=== PATIENT | male | born 1975 | race African-American/Black ===

== ENCOUNTER 2024-09-26 19:31 | Inpatient (IN) | payer MEDICAID, SELFPAY ==
--- NOTE | 2024-09-26 19:36 | XR_ITS ---
Examination: Abdomen AP single view Technique: AP portable supine abdomen, single view Exam date and time: September 26, 2024 1950 hrs. Indications: Patient swallowed foreign bodies. Findings: 2 opaque foreign bodies resembling batteries project in the left upper abdomen No free air Impression: Positive for opaque foreign bodies
[2024-09-26 19:40] VITALS: BP 183/109; BP 203/139; PULSE 65; RESP 18; TEMP 36.8; O2SAT 99; BMI 35.2
--- NOTE | 2024-09-26 19:40 | EDNOTE_ITS ---
ED General RME/HPI General Chief complaint: General Adult/Misc Complain Stated complaint: INGESTION Time Seen by Provider: 09/26/24 19:36 Arrival date/time: 09/26/24 19:31 CC: Swallowed 2 AAA batteries HPI incident occurred between 1600 1700 this afternoon. Patient denies any physical pain at this time. States he wants to commit suicide. Patient has no specific complaints. States he is on Zyprexa and as needed ibuprofen Related Data Home Medications ?Medication ?Instructions ?Recorded ?Confirmed divalproex 500 mg tablet,delayed 500 mg PO BID 04/29/24 04/29/24 release (Depakote) olanzapine 10 mg tablet (Zyprexa) 10 mg PO QPM 04/29/24 04/29/24 Allergies Allergy/AdvReac Type Severity Reaction Status Date / Time chlorpromazine Allergy Hives Verified 04/27/24 21:20 [From Thorazine] codeine Allergy Hives Verified 04/27/24 21:20 lithium Allergy Hives Verified 04/27/24 21:20 Review of Systems Review of Systems Narrative Review of Systems: GEN: No fever, no chills, no weight loss EYES: No discharge, no visual changes, no pain HEENT: No ear pain, no congestion, no sore throat PULM: No shortness of breath, no cough, no congestion CV: No chest pain, no dyspnea on exertion, no palpitations GI: No nausea, no vomiting, no diarrhea, no pain, no constipation : No frequency, no urgency, no dysuria MUSC/SKEL: No joint pain, no back pain SKIN: No rash PSYCH: No hallucinations, no depression HEME/LYMPH: No easy bleeding or bruising tendencies NEURO: No weakness, no headache Past Medical History Past Medical History NEUROLOGIC: Negative Neurological Disorders, Cerebrovascular Accident, Transient Ischemic Attacks (TIA), Dementia, Alzheimer's Disease, Parkinson's Disease, Brain Tumor, Meningitis, Seizures, Epilepsy, Multiple Sclerosis, Cerebral Palsy, Amyotrophic Lateral Sclerosis (ALS/Miriam Gehrig's), Guillain-[place] Syndrome, Spina Bifida, Paralysis, Peripheral Neuropathy, Og's Palsy, Subdural Hematoma, Migraine, Head Trauma, Spinal Cord Injury or Traumatic Brain Injury CARDIAC: Negative Cardiac Disorders or Congestive Heart Failure RESPIRATORY: Negative Chronic Obstructive Pulmonary Disease (COPD), Asthma, Bronchitis, Emphysema, Pneumonia, Pulmonary Fibrosis, Cystic Fibrosis, Tuberculosis, Pulmonary Embolism, Pulmonary Edema or Sleep Apnea GASTROINTESTINAL: Negative Gastrointestinal Disorders, Hepatitis or Colorectal Cancer GENITOURINARY: Negative Genitourinary Disorders, Renal Disease, Kidney Stones, Polycystic Kidney Disease, Neurogenic Bladder, Inguinal Hernia, Dialysis or Prostate Cancer REPRODUCTIVE: Negative Breast Cancer, Fibroids or Testicular Cancer MUSCULOSKELETAL: Positive Musculoskeletal Disorders and Scoliosis; Negative Bone Cancer or Carpal Tunnel Syndrome ENT: Negative Cataracts or Head Trauma ENDOCRINE: Negative Endocrine Disorders, Diabetes Mellitus Type 1 or Diabetes Mellitus Type 2 HEMATOLOGIC: Negative Blood Disorders, Anemia, Leukemia, Hemophilia, Thalassemia, Sickle Cell Disease or Clotting Problems PSYCHO/SOCIAL: Positive Psychiatric Problems, Recreational Drug Use, Bipolar Disorder, Depression and Anxiety OTHER HISTORY: Positive Chicken Pox; Negative Hospitalization, Autoimmune Disease, Down Syndrome, Autism, Developmental Delay, Shingles, Falls, Blood Transfusions, Blood Transfusion Reaction, Anesthesia Reactions, Organ Transplant, Chemotherapy, Radiation Therapy, Hyperbaric Therapy, MRSA, VRSA, Vancomycin-Resistant Enterococci, Human Immunodeficiency Virus (HIV), Measles, Mumps, Rubella ([place] Measles), Pertussis, Clostridium Difficile, Cancer, Breast Cancer, Cervical Cancer, Colorectal Cancer, Lung Cancer, Ovarian Cancer, Prostate Cancer or Testicular Cancer Family History FAMILY HISTORY: Negative Family Cardiac Disorders, Family Cancer, Family Surgery or Family Anesthesia Reaction Surgical History SURGICAL: Negative Cardiac Surgery, Auto Implanted Cardiovert Defib, Carotid Endarterectomy, Endocrine Surgery, Thyroidectomy, Ear Surgery, Tympanostomy Tube, Eye Surgery, Nose Surgery, Oral Surgery, Tonsillectomy, Adenoidectomy, Cochlear Implant, Corneal Transplant, Throat Surgery, Abdominal Surgery, Tracheostomy, Gastric Bypass Surgery, Gastrostomy, Bowel Surgery, Nephrectomy, Transurethral Resection, Joint Replacement, Amputation, Open Reduction Internal Fixation, Arthroscopy, Neurologic Surgery, Brain Shunt, Mastectomy, Lumpectomy, Vasectomy or Organ Transplant Social History SMOKING STATUS: Never smoker ED Exam Narrative Physical exam: [General: Not in any acute distress Head normocephalic HEENT: Within acceptable limits Neck is supple nontender Chest equal chest rise nontender to palpation Respiratory: Clear to auscultation no wheezes crackles or rubs CV: Rate rhythm is regular no murmurs rubs or clicks Abdomen is soft nontender no masses positive bowel sounds all 4 quadrants Back: No CVA tenderness no spinous process tenderness from cervical spine thoracic and lumbar spine Skin: Intact no petechiae rash induration ulceration or crepitus Extremities: Moving all extremity against resistance cap refill less than 2 seconds neurosensory intact Neuro: Awake alert oriented x3 Glascow coma 15 no focal deficits] Course Course Course Narrative: Patient case discussed with poison control who states as it is not passed from the stomach in the past 3-1/2 hours there is concern, and the suggest consult to GI Dr. Manzanares was consulted regarding this patient's condition he wants the patient admitted, n.p.o., started IV fluids and he will monitor the patient for potential endoscopy tomorrow. Patient case discussed with the resident for Dr. Addison who agrees to accept the patient for admission. Quality Measures none Orders Category Date Time Status Saline [Insert IV] NOW Care 09/26/24 20:10 Active Consult to Gastroenterology Stat Cons 09/26/24 20:10 Ordered XR abdomen 1V Stat Exams 09/26/24 19:36 Taken CBC Stat Lab 09/26/24 20:11 Ordered CMP [Comprehensive Metabolic Panel] Stat Lab 09/26/24 20:11 Ordered PT [Prothrombin Time with INR] Stat Lab 09/26/24 20:11 Ordered PTT [Partial Thromboplastin Time] Stat Lab 09/26/24 20:11 Ordered Sodium Chloride 0.9% 1000 ml [Ns] 1,000 ml Med 09/26/24 20:10 Ordered IV 100 mls/hr cloNIDine HCL [Catapres] Med 09/26/24 19:51 Discontinued 0.3 mg PO X1 ONE Vital Signs Vital signs: Vital Signs Temperature 98.2 F 09/26/24 19:40 Pulse Rate 65 09/26/24 19:40 Respiratory Rate 18 09/26/24 19:40 Blood Pressure 183/109 H 09/26/24 19:40 Pulse Oximetry (%) 99 09/26/24 19:40 Oxygen Delivery Method Room Air 09/26/24 19:40 [facility] Patient data External records reviewed:: [facility] previous records Clinical information provided by:: patient and law enforcement Social determinants that could affect healthcare access:: none Patient has the following chronic illnesses:: Depression How is presenting disease/condition affected by chronic disease/condition?: uneffected by Evaluation data The following diagnostics were reviewed and interpreted by me:: lab results and radiology exam(s) Lab and/or radiology exams considered but not ordered:: Single view abdomen shows 2 batteries in the stomach. Interpretation Summary: Batteries in the stomach Medications Medications considered but not ordered:: None Medication administrations:: Medication Administration History Sodium Chloride (Ns) 1,000 mls @ 100 mls/hr IV .Q10H YOLANDA Stop: 10/26/24 20:09 Discontinued Medications Clonidine (Clonidine Hcl 0.1 Mg Tablet) 0.3 mg PO X1 ONE Stop: 09/26/24 19:52 Last Admin: 09/26/24 19:56 Dose: 0.3 mg Documented By: CHAN None Consultations Consultation(s) initiated? (list below): No Diagnosis Differential Diagnosis ED Complaint MDM: Foreign body in the stomach obstruction of esophagus obstruction of the int Most likely diagnosis given after review of the tests above:: Disposable batteries in the stomach Admission Indicated Admission indicated?: indicated Explain why admission is indicated or not indicated:: Quires further medical management Admission Request Was there a request for admission?: No Disposition Plan Disposition Plan: Admit Medical Decision Making Differential Diagnosis Differential Diagnosis: Foreign body in the stomach obstruction of esophagus obstruction of the int Discharge Plan Plan Patient Disposition: HOME (Self Care) Patient condition on transfer: Stable Prescriptions/Referrals Prescriptions/Med Rec: No Action olanzapine [Zyprexa] 10 mg Tablet 10 mg PO QPM divalproex [Depakote] 500 mg Tablet,Delayed Release (Dr/Ec) 500 mg PO BID Problem List Clinical Impression: Intentional ingestion of batteries Patient/Caregiver Discharge Instructions Print Language: Nigerien Stand Alone Forms: Beatriz Award Info., Patient Portal Info Letter PA/DMITRI Supervising Physician PA/FINISHING AREA SUPERVISOR Supervising Physician: Calixto Maldonado ENP
[2024-09-26 19:56] VITALS: BP 183/109; PULSE 65
[2024-09-26] MEDS: cloNIDine HCL 0.1 MG TABLET 0.3 MG PO (19:56)
[2024-09-26] MEDS: SODIUM CHLORIDE 0.9% 1000 ML 1,000 ML 100 ML IV (20:40)
--- NOTE | 2024-09-26 20:44 | ESHP_ITS ---
Documentation for date of: 09/26/24 HPI History of Present Illness History of present illness: 48-year-old male with past medical history of bipolar disorder, history of right leg DVT, hx of suicidal attempt was brought to ED from assisted after he swallowed 2 batteries. Patient has a history of swallowing a razor 04/30/2024. Patient is suicidal and was stating that he was hoping that the batteries will be blown in his intestines and will kill him. Patient has a suicidal ideation, he was hoping to swallow razor as well as this time, however he stated that in assisted they would not give him brace. Patient is having active thoughts of harming himself, however denied any thoughts of harming others. On presentation patient was hemodynamically stable, was complaining of mild abdominal discomfort, and nausea, found to be hypertensive with blood pressure of 183/109, CBC revealed anemia with hemoglobin of 11.3, the rest of the labs significant, abdomen x-ray revealed 2 a pack foreign bodies resembling batteries project in the left upper abdomen, no free air. In ED Dr. Manzanares was contacted, who agreed on the consult, keep patient n.p.o., repeat KUB in the morning, Dr. Manzanares doubt that the batteries will pass a duodenal sphincter, and we will monitor the patient, most likely patient will have a EGD tomorrow. Review of Systems Review of Systems Systems Reviewed: All systems reviewed, normal except as documented Exam Vital Signs Temp Pulse Resp BP Pulse Ox O2 Del Method 98.2 F 65 18 183/109 H 99 Room Air 09/26/24 19:40 09/26/24 19:56 09/26/24 19:40 09/26/24 19:56 09/26/24 19:40 09/26/24 19:40 Narrative Exam GENERAL: AAO x3, well nourished, talketive, has active suicidal ideation. HEENT: Head AT/ NC. Mucous membranes moist. CARDIOVASCULAR: RRR. no murmur RESPIRATORY: No wheezing, rhonchi, GASTROINTESTINAL: Abdomen soft, mild tenderness in epigastric area .Bowel sounds present in all 4 quadrants. MUSCULOSKELETAL:ROM intact BL, wound on R great toe. NEUROLOGICAL: CN II-XII grossly intact. No focal deficits. INTEGUMENTARY: No obvious rashes, Results: Labs 09/26/24 20:30 09/26/24 20:30 Quality Measures Quality Measures none Medications Home Medications and Allergies Home Medications ?Medication ?Instructions ?Recorded ?Confirmed ?Type divalproex 500 mg tablet,delayed 500 mg PO BID 04/29/24 04/29/24 History release (Depakote) olanzapine 10 mg tablet (Zyprexa) 10 mg PO QPM 04/29/24 04/29/24 History Allergies Allergy/AdvReac Type Severity Reaction Status Date / Time chlorpromazine Allergy Hives Verified 04/27/24 21:20 [From Thorazine] codeine Allergy Hives Verified 04/27/24 21:20 lithium Allergy Hives Verified 04/27/24 21:20 Visit Medications Sodium Chloride (Ns) 1,000 mls @ 100 mls/hr IV .Q10H YOLANDA Stop: 09/27/24 06:09 Last Admin: 09/26/24 20:40 Dose: 100 mls/hr Discontinued Medications Clonidine (Clonidine Hcl 0.1 Mg Tablet) 0.3 mg PO X1 ONE Stop: 09/26/24 19:52 Last Admin: 09/26/24 19:56 Dose: 0.3 mg Assessment & Plan Plan 48 y o Male with past medical history of bipolar disorder, history of right leg DVT, history of suicidal attempt was admitted for foreign body ingestion. #Foreign body ingestion Swallowed 2 batteries X-ray abdomen revealed 2 a pack foreign bodies resembling batteries project in the left upper abdomen, no free air. -Strict n.p.o. -IVF -Dr. Manzanares was consulted, -Repeat KUB in the morning -monitore for perforation -Most likely patient will have a EGD, Dr. Manzanares doubt that the batteries will be able to pass duodenal sphincter #Bipolar disorder #Suicidal ideation #Suicide attempt Home medications are olanzapine, Depakote -Will restart Depakote to IV, after med rec completion -Strict n.p.o. for now, holding home medication -5150 hold, will need crisis eval once patient is medically cleared #Hypertension In ED patient was given clonidine p.o. -Keep patient strictly n.p.o. -Hydralazine 10 as needed IVP #normocitic anemia -monitore for sign of bleeding/perforation -transfus is Hgb <7 #R great toe wound -wound care Disposition: MedSurg DVT prophylaxis: SCDs holding chemical prophylaxis in case of emergency, surgical intervention. GI prophylaxis: none Diet: NPO strict. (no PO meds) Lines: PIV CODE STATUS:Full code Patient care was discussed with attending physician Dr. Cyn Rice MD PGY-2 I have carefully reviewed this document. Due to imperfections in the voice software, there could be grammatical errors including phonetic/typographic errors. This in no way compromises the medical care the patient is receiving Attending Provider Attestation/Addendum I reviewed labs, imaging, EKG, home medications and prior available records. Face to face evaluation was performed by me. I have personally examined the patient and discussed assessment and plan with the IM team. I reviewed the resident note and agree with the plan with exceptions as below. 48-year-old male with history of bipolar disorder and history of foreign body ingestion who presented with a chief complaint of chest pain in the setting of ingestion of AAA batteries. He was admitted for observation and possible EGD. Ingestion of foreign body: In the setting of intentional suicide attempt/thoughts in the setting of history of bipolar disorder. Consulted GI: Recommended observation and IV fluids. Strict NPO. Repeat chest/abdomen x-ray in the morning and if the batteries did not pass through then we will plan for EGD. Suicidal ideation: In the setting of history of bipolar disorder. He needs crisis team clearance prior to discharge. Patient will benefit from inpatient psych admission given his uncontrolled will. Bipolar disorder: Resume home medications once reconciled.
[2024-09-26 20:45] LABS: Basophils % (Auto) 0 % (0-2.5); Eosinophils # (Auto) 0.3 Thou/mm3 (0.0-0.5); Eosinophils % (Auto) 5 % (0-10); Hematocrit 35.6 % (41.0-53.0); Hemoglobin 11.3 g/dL (13.5-16.0); Immature Granulocytes % (Auto) 0 % (0-0); Immature Granulocytes Auto 0.02 Thou/mm3 (0.00-0.00); Lymphocytes # (Auto) 2.3 Thou/mm3 (1.0-4.8); Lymphocytes % (Auto) 36 % (10-50); Mean Corpuscular HGB Conc 31.7 g/dl (31.0-37.0); Mean Corpuscular Volume 82 fL (80-100); Monocytes # (Auto) 0.6 Thou/mm3 (0.0-0.8); Monocytes % (Auto) 10 % (0-12); Neutrophils # (Auto) 3.2 Thou/mm3 (1.8-7.7); Neutrophils % (Auto) 49 % (37-80); Nucleated Red Blood Cell % 0 /100 WBC (0); Platelet Count 227 Thou/mm3 (140-440); RDW Standard Deviation 47.8 fL (35.1-43.9); Red Blood Count 4.34 Miln/mm3 (4.50-5.90); White Blood Count 6.4 Thou/mm3 (3.8-10.6)
[2024-09-26 21:00] VITALS: BP 132/89; PULSE 67; RESP 16; O2SAT 98
[2024-09-26 21:01] VITALS: PULSE 71; RESP 19; RESP 97
[2024-09-26 21:02] LABS: INR 0.9 (0.9-1.3); Partial Thromboplastin Time 20.4 Seconds (22.0-36.0); Prothrombin Time 10.3 Seconds (9.0-12.2)
[2024-09-26 21:07] LABS: Alanine Aminotransferase 23 U/L (10-49); Albumin/Globulin Ratio 1.7 (1.2-2.2); Alkaline Phosphatase 56 U/L (46-116); Anion Gap 6 (7-16); Aspartate Amino Transferase 25 U/L (0-34); BUN/Creatinine Ratio 14 Ratio (12-20); Bilirubin,Total 0.3 mg/dL (0.3-1.2); Blood Urea Nitrogen 14 mg/dL (9-23); Calcium 10.5 mg/dL (8.3-10.6); Calcium (Corrected) 10.5 mg/dL (8.5-10.1); Carbon Dioxide 30.2 mMol/L (20.0-31.0); Chloride 101 mMol/L (98-107); Estimated Creatinine Clearance 119.8 mL/min (>60); Glucose 90 mg/dL (74-106); Osmolality,Calculated 274 (275-295); Sodium 137 mMol/L (136-145); eGFR > 60 See Note
--- NOTE | 2024-09-26 22:49 | PC.NURSE ---
Spoke with Leidy from [facility] and provided report on why pt is admitted and current plan of care.
[2024-09-27] VITALS (16 sets, daily range): BP systolic 112–160; BP diastolic 73–102; PULSE 71–94; RESP 12–99; TEMP 36.1–36.6; O2SAT 93–99; BMI 34.9
[2024-09-27 06:06] LABS: Basophils % (Auto) 0 % (0-2.5); Eosinophils # (Auto) 0.3 Thou/mm3 (0.0-0.5); Eosinophils % (Auto) 4 % (0-10); Hemoglobin 11.1 g/dL (13.5-16.0); Immature Granulocytes % (Auto) 0 % (0-0); Immature Granulocytes Auto 0.02 Thou/mm3 (0.00-0.00); Lymphocytes # (Auto) 2.8 Thou/mm3 (1.0-4.8); Lymphocytes % (Auto) 40 % (10-50); Mean Corpuscular HGB Conc 31.7 g/dl (31.0-37.0); Mean Corpuscular Hemoglobin 26.1 pg (25.0-35.0); Mean Corpuscular Volume 82 fL (80-100); Monocytes # (Auto) 0.7 Thou/mm3 (0.0-0.8); Monocytes % (Auto) 10 % (0-12); Neutrophils # (Auto) 3.2 Thou/mm3 (1.8-7.7); Neutrophils % (Auto) 46 % (37-80); Nucleated Red Blood Cell # 0.02 Thou/mm3 (0.00-0.00); Nucleated Red Blood Cell % 0 /100 WBC (0); Platelet Count 207 Thou/mm3 (140-440); RDW Standard Deviation 47.8 fL (35.1-43.9); Red Blood Count 4.26 Miln/mm3 (4.50-5.90)
[2024-09-27 06:10] LABS: Partial Thromboplastin Time 24.3 Seconds (22.0-36.0); Prothrombin Time 10.8 Seconds (9.0-12.2)
[2024-09-27 06:38] LABS: Alanine Aminotransferase 20 U/L (10-49); Albumin, Serum 4.6 gm/dL (3.5-5.0); Albumin/Globulin Ratio 1.6 (1.2-2.2); Alkaline Phosphatase 57 U/L (46-116); Anion Gap 12 (7-16); Aspartate Amino Transferase 21 U/L (0-34); BUN/Creatinine Ratio 10 Ratio (12-20); Bilirubin,Total 0.4 mg/dL (0.3-1.2); Blood Urea Nitrogen 10 mg/dL (9-23); Calcium 9.9 mg/dL (8.3-10.6); Calcium (Corrected) 9.9 mg/dL (8.5-10.1); Carbon Dioxide 25.8 mMol/L (20.0-31.0); Chloride 100 mMol/L (98-107); Estimated Creatinine Clearance 119.2 mL/min (>60); Globulin 2.9 gm/dL (2.3-3.5); Glucose 111 mg/dL (74-106); Magnesium 1.6 mg/dL (1.6-2.6); Osmolality,Calculated 275 (275-295); Potassium 3.4 mMol/L (3.4-5.1); Sodium 138 mMol/L (136-145); Total Protein 7.5 gm/dL (5.7-8.2); eGFR > 60 See Note
--- NOTE | 2024-09-27 07:00 | XR_ITS ---
Examination: Abdomen AP single view Technique: AP portable supine abdomen, single view Exam date and time: September 27, 2024 0706 hours INDICATIONS: Ingested foreign bodies 12 hours ago. FINDINGS: 2 opaque foreign bodies consistent with batteries project in the left upper abdomen No free air No obstruction IMPRESSION: No change in position opaque foreign body
--- NOTE | 2024-09-27 09:49 | PC.SS ---
Addendum entered by JACQUELYN Marcano 09/27/24 15:08: Rounding note: patient pending EGD. Addendum entered by JACQUELYN Marcano 09/27/24 10:15: Received call from Nadege at [facility]. She informs that plan is for patient to return back to [facility] and patient is to be placed in safety zone due to the circumstances. Nadege informs patient is aligned with services and is to follow up with psychiatrist and clinician in house. Original Note: JACQUELYN contacted [facility] and spoke with Zion, to identify patient's discharge plan and mental health evaluation process. Was informed assigned staff to contact health technical writer back to provide this information. JACQUELYN provided direct line phone number.
--- NOTE | 2024-09-27 12:24 | PC.NURSE ---
Dr. Wyman ok patient to get TV remote back since patient has officer at bedside and sitter.
--- NOTE | 2024-09-27 14:32 | ESCONSULT_ITS ---
HPI Data of Consult Requesting Physician: Karthikeyan Wyman DO Primary Care Provider: Physician No Primary/Family Consult Narrative Reason for consult: Foreign body cavity of the stomach History of present illness: Late entry for the note 48 years old male evaluated at the request of the emergency room physician occupational therapist's assistant As the patient swallowing to AAA diabetes Imaging studies have shown diabetes to be in the body of the stomach Patient currently not having any nausea vomiting or any symptoms of gastric outlet obstruction cc:: cc: Karthikeyan Wyman DO Review of Systems Review of Systems Systems Reviewed: All systems reviewed, normal except as documented Past Medical History Surgical History OTHER SURGICAL HX: Psychiatric issues Meds Home Medications and Allergies Home Medications ?Medication ?Instructions ?Recorded ?Confirmed ?Type divalproex 500 mg tablet,delayed 500 mg PO BID 04/29/24 04/29/24 History release (Depakote) olanzapine 10 mg tablet (Zyprexa) 10 mg PO QPM 04/29/24 04/29/24 History Allergies Allergy/AdvReac Type Severity Reaction Status Date / Time chlorpromazine Allergy Hives Verified 04/27/24 21:20 [From Thorazine] codeine Allergy Hives Verified 04/27/24 21:20 lithium Allergy Hives Verified 04/27/24 21:20 Exam Vital Signs Temp Pulse Resp BP Pulse Ox O2 Del Method 97.9 F 71 20 116/73 95 Room Air 09/27/24 11:42 09/27/24 11:42 09/27/24 11:42 09/27/24 11:42 09/27/24 11:42 09/27/24 11:42 Constitutional Comments: Alert oriented Routine Respiratory Exam Comments: Normal to auscultation Routine Abdominal Exam Comments: Soft nontender Results Labs 09/27/24 04:45 09/27/24 04:45 Labs: Short CBC 09/26/24 09/27/24 Range/Units 20:30 04:45 WBC 6.4 7.0 (3.8-10.6) Thou/mm3 Hgb 11.3 L 11.1 L (13.5-16.0) g/dL Hct 35.6 L 35.0 L (41.0-53.0) % Plt Count 227 207 (140-440) Thou/mm3 BMP 09/26/24 09/27/24 20:30 04:45 Sodium 137 138 Potassium 4.0 3.4 D Chloride 101 100 Carbon Dioxide 30.2 25.8 BUN 14 10 Creatinine 1.0 1.0 Glucose 90 111 H Calcium 10.5 9.9 Liver Function 09/26/24 09/27/24 Range/Units 20:30 04:45 Total Bilirubin 0.3 0.4 (0.3-1.2) mg/dL AST 25 21 (0-34) U/L ALT 23 20 (10-49) U/L Alkaline Phosphatase 56 57 (46-116) U/L Albumin 5.0 4.6 (3.5-5.0) gm/dL Assessment and Plan Additional Assessment & Plan Additional Plan: # Ingestion of foreign body which is 2 AAA batteries laying in the gastric body Plan KUB was recommended for this morning which was done and the batteries are still in the cavity of the stomach Consent obtained for fiberoptic esophagogastroduodenoscopy with removal of the foreign body endoscopically under intravenous moderate sedation Will proceed with the procedure
--- NOTE | 2024-09-27 15:50 | PD.RESPRO ---
Documentation for date of: 09/27/24 Subjective Subjective Interval history: Patient seen at bedside. He is a 48-year-old male with a past medical history of bipolar disorder and a history of suicidal attempts was brought into the ED on 09/26/2024 from shelter after he swallowed 2 batteries. On presentation, patient was hemodynamically stable, complains of mild abdominal discomfort and nausea was hypertensive blood pressure 183/109. Labs were significant only for hemoglobin of 11.3. Abdominal x-ray showed 2 foreign bodies in the left upper abdomen and repeat shows about the same. GI Dr. Manzanares consulted, patient is n.p.o. for likely EGD. At bedside today, patient has no complaints and has been updated on findings and plan. Exam Vital Signs Temp Pulse Resp BP Pulse Ox O2 Del Method 97.9 F 71 20 116/73 95 Room Air 09/27/24 11:42 09/27/24 11:42 09/27/24 11:42 09/27/24 11:42 09/27/24 11:42 09/27/24 11:42 Narrative Exam GENERAL: AAOX3 NEURO: AIRCRAFT AIR CONDITIONING MECHANIC grossly intact, moves extremities x4 HEENT: Moist mucosa. Eyes open, symmetrical, & clear CARDIO: No chest pain on palpation. Heart RRR, no obvious murmurs PULM: No noted coughing/dyspnea. Lungs CTA B/L GI: Abdomen soft, nondistended, no pain on palpation. BSx4 URO/DEVULCANIZER LOADER:: No further abnormalities noted. SKIN/MSK/EXT: No wounds/rashes/edema/amputations, no pain on palpation. Pedal pulses present B/L Objective Labs 09/27/24 04:45 09/27/24 04:45 Labs: Laboratory Results - last 24 hr 09/26/24 09/27/24 20:30 04:45 WBC 6.4 7.0 RBC 4.34 L 4.26 L Hgb 11.3 L 11.1 L Hct 35.6 L 35.0 L MCV 82 82 MCH 26.0 26.1 MCHC 31.7 31.7 RDW Std Deviation 47.8 H 47.8 H Plt Count 227 207 Neut % (Auto) 49 46 Lymph % (Auto) 36 40 [place] % (Auto) 10 10 Eos % (Auto) 5 4 Baso % (Auto) 0 0 Neut # (Auto) 3.2 3.2 Lymph # (Auto) 2.3 2.8 [place] # (Auto) 0.6 0.7 Eos # (Auto) 0.3 0.3 Baso # (Auto) 0.0 0.0 Immature Gran # (Auto) 0.02 H 0.02 H Absolute Nucleated RBC 0.00 0.02 H Immature Gran % 0 0 Nucleated RBC % 0 0 PT 10.3 10.8 INR 0.9 1.0 APTT 20.4 L 24.3 Sodium 137 138 Potassium 4.0 3.4 D Chloride 101 100 Carbon Dioxide 30.2 25.8 Anion Gap 6 L 12 BUN 14 10 Creatinine 1.0 1.0 Estim Creat Clear Calc 119.8 119.2 eGFR > 60 > 60 BUN/Creatinine Ratio 14 10 L Glucose 90 111 H Calculated Osmolality 274 L 275 Calcium 10.5 9.9 Corrected Calcium 10.5 H 9.9 Phosphorus 3.0 Magnesium 1.6 Total Bilirubin 0.3 0.4 AST 25 21 ALT 23 20 Alkaline Phosphatase 56 57 Total Protein 8.0 7.5 Albumin 5.0 4.6 Globulin 3.0 2.9 Albumin/Globulin Ratio 1.7 1.6 Quality Measures Quality Measures none Assessment & Plan Assessment Current Active Medications: Generic Name Dose Route Start Last Admin Trade Name Freq PRN Reason Stop Dose Admin Hydralazine HCl 10 mg 09/26/24 20:43 Hydralazine Inj 20 Mg/Ml Vial IV 10/26/24 20:44 Q6H PRN hypertension Plan Summary: The patient is a 48 y o Male with past medical history of bipolar disorder, history of right leg DVT, history of suicidal attempt was admitted for foreign body ingestion. #Foreign body ingestion He is a 48-year-old male with a past medical history of bipolar disorder and a history of suicidal attempts was brought into the ED on 09/26/2024 from shelter after he swallowed 2 batteries. On presentation, patient was hemodynamically stable, complains of mild abdominal discomfort and nausea was hypertensive blood pressure 183/109. Labs were significant only for hemoglobin of 11.3. Abdominal x-ray showed 2 foreign bodies in the left upper abdomen and repeat shows about the same. GI Dr. Manzanares consulted, patient is n.p.o. for likely EGD. At bedside today, patient has no complaints and has been updated on findings and plan. Plan: -Keep NPO for possible EGD -CT IVF -Dr. Manzanares was consulted, appreciate recoommendations -Most likely patient will have a EGD, Dr. Manzanares doubt that the batteries will be able to pass duodenal sphincter #Bipolar disorder #Suicidal ideation #Suicide attempt Home medications are olanzapine, Depakote -Will restart Depakote to IV, after med rec completion -Strict n.p.o. for now, holding home medication -5150 hold, will need crisis eval once patient is medically cleared #Hypertension In ED patient was given clonidine p.o. -Keep patient strictly n.p.o. -Hydralazine 10 as needed IVP #Normocytic anemia -Monitor for sign of bleeding/perforation -Transfuse if Hgb <7 #R great toe wound-chronic -Referral wound care Disposition: MedSurg DVT prophylaxis: SCDs holding chemical prophylaxis in case of emergency, surgical intervention. GI prophylaxis: none Diet: NPO strict. (no PO meds) Lines: PIV CODE STATUS:Full code Case was discussed with attending physician, Dr Garo Manzo MD PGY-1 Attending Provider Attestation/Addendum I have discussed and was present for the essential components of the history, physical examination, diagnosis, and treatment plan with the resident. I agree with the patient's care as documented by the resident and amended herein by me. Artie Wyman DO. Patient seen and evaluated this AM. Foreign body still present on imaging, patient will likely need EGD to remove the batteries presently located in the patient's stomach. Patient is in no distress, just hungry, gastroenterology consulted, appreciate recommendations. Although this document has been carefully reviewed, there may still be some phonetic and other typographical errors. These errors are purely grammatical due to imperfections in the software program and should not be construed in any way to compromise the substance of the patient's medical care during this visit.
--- NOTE | 2024-09-27 15:57 | PC.ADMIT ---
PATIENT WILL SIGN CONSENT ONCE DR. SISM EXPLAINS PROCEDURE TO PATIENT.
--- NOTE | 2024-09-27 19:22 | SUR.PHASEI ---
pt received from OR in recovery bay 8. pt asleep but responds to voice, breathing unlabored on room air. v/s stable. report received from Flakita VAZ.
--- NOTE | 2024-09-27 19:34 | SUR.PHASEI ---
pt able to tolerate oral fluids without difficulty swallowing or nausea/vomiting.
--- NOTE | 2024-09-27 19:52 | SUR.PHASEI ---
pt awake and alert, breathing unlabored on room air. v/s stable. report called to Will RN. pt will be transferred to room at this time.
[2024-09-28] VITALS: BP 123/75; PULSE 98; RESP 18; TEMP 36.4; O2SAT 96
--- NOTE | 2024-09-28 03:33 | PD.RESEVENT ---
Documentation for date of: 09/28/24 Event Note Event Note: Called by nurse that patient was agitated about his IV lines, stating that he was willing to take them out and wanted to leave. Upon arrival with Dr. Rice with guard at bedside and nurse outside of room per patient's preference, patient was upset that a nurse told him to stop being inappropriate. Patient then went on and spoke about how he is in senior living for homicide and is not afraid to do so again, stating that he is not afraid of guard's side-arm or tazer and would rip nurses throat out for telling him he was inappropriate. After encounter, nurse informed night team that patient was seen masturbating while looking at female sitter. At end of encounter with patient, patient was agreeable to keep IV in and to go back to sleep. Medication was not given at this time, as he was A&O x3 and refused. Plan discussed with senior resident physician, Dr. Rice.
--- NOTE | 2024-09-28 03:46 | PC.NURSE ---
It was reported to this song writer by Mariaa AGUIRRE that during her 1:1 duties the patient began smiling and exposing his genitalia and masturbating. Patient became verbally aggressive and threatening after being accused of inappropriate behavior by staff. Patient denied allegations and responded with escalating hostility, including threats toward staff and comments of harm. Patient stated, I got hands bitch, I'ma rip your throat out. You heidi I'm in cuffs, and, I don?t give a fuck, who the fuck are you to be accusing me? take this IV out before i rip it out notified at this time, Pt. education and therapeutic communication provided. Pt receptive at this time and agreed to keep IV in until discharge.
[2024-09-28 04:00] VITALS: BP 128/79; PULSE 98; RESP 18; TEMP 36.3; O2SAT 96
[2024-09-28 06:11] LABS: Basophils % (Auto) 0 % (0-2.5); Eosinophils # (Auto) 0.3 Thou/mm3 (0.0-0.5); Eosinophils % (Auto) 4 % (0-10); Hematocrit 35.4 % (41.0-53.0); Hemoglobin 11.3 g/dL (13.5-16.0); Immature Granulocytes % (Auto) 0 % (0-0); Immature Granulocytes Auto 0.02 Thou/mm3 (0.00-0.00); Lymphocytes # (Auto) 2.4 Thou/mm3 (1.0-4.8); Lymphocytes % (Auto) 38 % (10-50); Mean Corpuscular HGB Conc 31.9 g/dl (31.0-37.0); Mean Corpuscular Hemoglobin 26.2 pg (25.0-35.0); Mean Corpuscular Volume 82 fL (80-100); Monocytes # (Auto) 0.8 Thou/mm3 (0.0-0.8); Monocytes % (Auto) 12 % (0-12); Neutrophils # (Auto) 2.9 Thou/mm3 (1.8-7.7); Neutrophils % (Auto) 46 % (37-80); Nucleated Red Blood Cell # 0.02 Thou/mm3 (0.00-0.00); Nucleated Red Blood Cell % 0 /100 WBC (0); Platelet Count 234 Thou/mm3 (140-440); RDW Standard Deviation 46.9 fL (35.1-43.9); Red Blood Count 4.32 Miln/mm3 (4.50-5.90); White Blood Count 6.4 Thou/mm3 (3.8-10.6)
[2024-09-28 06:42] LABS: Alanine Aminotransferase 22 U/L (10-49); Albumin, Serum 4.4 gm/dL (3.5-5.0); Anion Gap 9 (7-16); Aspartate Amino Transferase 27 U/L (0-34); BUN/Creatinine Ratio 15 Ratio (12-20); Bilirubin,Total 0.3 mg/dL (0.3-1.2); Blood Urea Nitrogen 17 mg/dL (9-23); Calcium 9.7 mg/dL (8.3-10.6); Calcium (Corrected) 9.7 mg/dL (8.5-10.1); Carbon Dioxide 26.9 mMol/L (20.0-31.0); Chloride 102 mMol/L (98-107); Creatinine (Component) 1.1 mg/dL (0.6-1.3); Estimated Creatinine Clearance 108.4 mL/min (>60); Globulin 2.7 gm/dL (2.3-3.5); Glucose 112 mg/dL (74-106); Magnesium 1.8 mg/dL (1.6-2.6); Osmolality,Calculated 278 (275-295); Potassium 3.7 mMol/L (3.4-5.1); Sodium 138 mMol/L (136-145); Total Protein 7.1 gm/dL (5.7-8.2); eGFR > 60 See Note
[2024-09-28 06:43] LABS: Albumin/Globulin Ratio 1.6 (1.2-2.2); Alkaline Phosphatase 62 U/L (46-116)
[2024-09-28] MEDS: POTASSIUM CHLORIDE 20 mEq TABCR 40 MEQ PO (10:58)
[2024-09-28] MEDS: DIVALPROEX SOD DR 500 MG TABLET.DR PO (11:04)
--- NOTE | 2024-09-28 12:11 | PC.SS ---
Patient is a 48- year-old male admitted for foreign body ingestion. Medical team has requested for a mental health evaluation as patient was brought in on 09/26/24 with Suicidal Ideation. Resident Dr. Jamison has informed the patient has been medically cleared for mental health evaluation. Cristian met with patient [id number] to complete assessment. ASW introduced self, role, and reason for assessment. ASW disclosed limits of confidentiality to the patient. Patient appeared alert and oriented to self, place, and situation. During this encounter, the patient was pleasant and cooperative. Patient made appropriate eye contact throughout the assessment. Present was Deputy Misty Cardona #[id number] as patient is inmate at [facility]. The patient reports he presented to the ED on 09/26/24 from [facility] with suicidal ideation as he swallowed two batteries with the intent to kill himself. Patient informs ?I wanted to , and kill myself?. Patient has a history with self-harm during April 2024, swallowing a razor with similar intentions to end his life. Today, the patient is currently reporting having Suicidal Ideation and Homicidal Ideation, however denies plan and intent to proceed with any plan. Patient reports having Visual Hallucinations and Audio Hallucinations. Patient states ?I hear voices and see people?. Patient reports having a history with mental health with the following diagnosis: bipolar disorder, PTSD and schizophrenia. Patient informs he takes the following psychotropic medication: Depakote once in the morning and Zyprexa morning and night. Patient reports to having a history of psychiatric hospitalization, twice in the past however does not recall facilities names. Patient reports having history of substances use alcohol and marijuana. After evaluation, it is noted that patient does require follow up in regards to his mental health. Upon clinical consultation with [facility], Angelic Hicks, patient to follow up with mental health services at [facility] upon discharge as he is current inmate at their facility. SCOTT- spoke with Nadege at [facility]. She reports the patient is followed by Dr. Quincy Greenfield, his psychiatrist and clinician Alejandra Bowman. Nadege reports patient is seen weekly by his providers. Patient is recommended to follow up with services providers upon returning to [facility]. Gave verbal report to Nadege as Dr. Greenfield and clinician Bowman are out today. ASW updated resident Dr. Jamison and bed side nurse.
--- NOTE | 2024-09-28 12:13 | PC.NURSE ---
Spoke to Cheri patient is cleared from crisis patient sees a psychiatrist at the facility.
--- NOTE | 2024-09-28 13:03 | PC.NURSE ---
Patient has discharge orders Dr. Barrett has to come see patient before we send him out to facility. Will continue to monitor patient.
--- NOTE | 2024-09-28 13:13 | PC.NURSE ---
Gave report to Margarita at [facility]
--- NOTE | 2024-09-28 14:50 | PC.NURSE ---
Dr. Barrett came and saw patient he is ready for discharge. I will have another nurse DC patient he does not want me back in the room or to remove IV
--- NOTE | 2024-09-28 16:19 | ESDS_ITS ---
<Statement entered by Jack Barrett MD - 10/03/24 16:32> I reviewed above note and agree with findings and plans. I have also personally examined the patient with medicine team and went over assessment and plan with medical team including internet technology manager and resident physician. Planned Discharge Date 09/28/24 DS: Providers Provider Date of admission: 09/26/24 20:38 Primary care physician: Physician No Primary/Family Admitting Provider: Quincy Addison MD Attending Provider on Admission: Jack Barrett MD Consults: 09/26/24 20:10 Consult to Gastroenterology Stat Comment: Consulting Provider: Francisco Manzanares 09/28/24 11:37 Referral Psych Eval Stat Comment: Attending Provider on DC: Jack Barrett MD Discharging Provider: Dennys Jamison DO DS: Diagnosis Problem List Completed Was Problem List Reviewed/Reconciled?: Yes Hospital Course Hospital Course Hospital course: Patient is a 48 year old male with history of bipolar disorder, right leg DVT, and history of suicidal attempts who presented to the ED from alf following episode of swallowing 2 batteries. In the ED, patient was reported to have suicidal ideation, also endorsed a history of swallowing a razor in the past. Upon arrival was noted to be hypertensive 183/109, imaging revaled 2 foreign bodies resembling batteries in the upper abdomen. Marble And Granite Polisher Dr. Manzanares w as contacted, who completed an EGD on 09/27 that did not reveal any foreign bodies in the stomach, with foreign bodies likely having passed the pyloric channel into the small intestine. Thereafter, diet was resumed and patient was started on home medications including depakote and olanzapine for his medical conditions. GI team advises that patient continue a diet and closely monitor for foreign body exiting body with bowel movement, advises 2 week follow up and immediate return to the ED if patients develop any abdominal pain, nausea, or vomiting. Patient was given clonidine in ED and hydralazine as needed for hypertension during hospital course, blood pressures noted to be well controlled. Wound care referral was placed for patients chronic toe wound. At time of discharge, patient is stable without any nausea, vomiting, or abdominal pain. Has been able to tolerate PO feeds. Will be discharged back to alf where further psychiatric and suicidal screening, evaluation, and management will occur. Has been advised to follow up with PCP within 1 week, follow up with GI Dr. Manzanares within 2 weeks, and return to ED for any nausea, vomiting, or abdominal/rectal pain. Patient is in agreement with plan. Problem list: #Foreign body ingestion #Suicidal attempt #Hypertensive episode #History of bipolar disorder #History of right first toe wound Patient case discussed with attending physician Dr. Arnold Jamison, DO PGY-3 Status at Discharge Overall status at discharge: patient is back to baseline Time Spent with Patient Time attestation: Total time spent providing and/or coordinating discharge services: Time spent: Greater than 30 minutes Exam Vital Signs Temp Pulse Resp BP Pulse Ox O2 Del Method O2 Flow Rate 97.3 F 98 18 128/79 96 Room Air 3 09/28/24 04:00 09/28/24 04:00 09/28/24 04:00 09/28/24 04:00 09/28/24 04:00 09/28/24 00:00 09/28/24 00:00 Narrative Exam General: AOx3, cooperative, in no acute distress HEENT: Atraumatic/normocephalic, [place]Z Heart: RRR, S1 and S2 without clicks or murmurs Lungs: Clear on auscultation bilaterally, no difficulty breathing Abdomen: Soft, nontender. Bowel sounds present on all quadrants, no organomegaly Neuro: No focal neurological deficits noted Discharge Plan Plan Patient Disposition: [facility]/Law Patient condition on transfer: Stable Prescriptions/Referrals Prescriptions/Med Rec: Continued olanzapine [Zyprexa] 10 mg Tablet 10 mg PO QPM divalproex [Depakote] 500 mg Tablet,Delayed Release (Dr/Ec) 500 mg PO BID Referrals: Francisco Manzanares MD [Physician] - No Primary/Family,Physician [Primary Care Provider] - Patient/Caregiver Discharge Instructions Discharge Activity: activity as tolerated Other Discharge Activity Instructions:: Follow up with PCP within 1 week of discharge Follow up with GI Dr. Manzanares within 2 weeks Batteries not removed during EGD, will likely pass through stool. If any new pains or nausea/vomiting occur, please return to the ED or with PCP immediately Education Materials: Upper GI Endoscopy, ED Swallowed Foreign Body (Adult) Print Language: Upper Sorbian Discharge Order Discharge Orders: Discharge (Routine); Ordered 09/28/24 Ordered By: Dennys Jamison Quality Discharge Quality Measures VTE prophylaxis (SCDs)
--- NOTE | 2024-09-28 19:39 | PD.IMPROG ---
Documentation for date of: 09/28/24 Subjective Subjective Interval history: Late entry for the note Case discussed with internal medicine team Okay to discharge patient home Patient should be able to pass the batteries per rectum however there is a slight possibility of them ending at the ileocecal valve Patient given clear instructions to come back if he starts having nausea vomiting abdominal distention Exam Vital Signs Temp Pulse Resp BP Pulse Ox O2 Del Method O2 Flow Rate 97.3 F 98 18 128/79 96 Room Air 3 09/28/24 04:00 09/28/24 04:00 09/28/24 04:00 09/28/24 04:00 09/28/24 04:00 09/28/24 00:00 09/28/24 00:00 Objective Labs 09/28/24 05:23 09/28/24 05:23 Labs: Laboratory Results - last 24 hr 09/28/24 05:23 WBC 6.4 RBC 4.32 L Hgb 11.3 L Hct 35.4 L MCV 82 MCH 26.2 MCHC 31.9 RDW Std Deviation 46.9 H Plt Count 234 Neut % (Auto) 46 Lymph % (Auto) 38 [place] % (Auto) 12 Eos % (Auto) 4 Baso % (Auto) 0 Neut # (Auto) 2.9 Lymph # (Auto) 2.4 [place] # (Auto) 0.8 Eos # (Auto) 0.3 Baso # (Auto) 0.0 Immature Gran # (Auto) 0.02 H Absolute Nucleated RBC 0.02 H Immature Gran % 0 Nucleated RBC % 0 Sodium 138 Potassium 3.7 Chloride 102 Carbon Dioxide 26.9 Anion Gap 9 BUN 17 Creatinine 1.1 Estim Creat Clear Calc 108.4 eGFR > 60 BUN/Creatinine Ratio 15 Glucose 112 H Calculated Osmolality 278 Calcium 9.7 Corrected Calcium 9.7 Magnesium 1.8 Total Bilirubin 0.3 AST 27 ALT 22 Alkaline Phosphatase 62 Total Protein 7.1 Albumin 4.4 Globulin 2.7 Albumin/Globulin Ratio 1.6 Impressions Impression: # Foreign body ingestion which is two AAA batteries Okay to discharge patient home to be followed by the PCP Assessment & Plan A&P Narrative # Ingestion of foreign body which is 2 AAA batteries laying in the gastric body Plan KUB was recommended for this morning which was done and the batteries are still in the cavity of the stomach Consent obtained for fiberoptic esophagogastroduodenoscopy with removal of the foreign body endoscopically under intravenous moderate sedation Will proceed with the procedure Time Spent With Patient Time: Total time spent is greater than 50% in coordination of care (as documented) at patient's floor/unit and/or counseling patient:
== END 2024-09-28 15:14 | DRG 254 ==
LOC: SERX 23:32 → SERHOLD 23:34 → S3NX 23:55
PROVIDERS: Registered Nurse General Practice; Specialist; Student in an Organized Health Care Education/Training Program; Admitting Provider Student in an Organized Health Care Education/Training Program; Emergency Provider Emergency Medicine; Visit Provider Internal Medicine
PROC: 0DJ08ZZ Inspection of Upper Intestinal Tract, Via Natural or Artificial Opening Endoscopic (ICD-10-PCS; CPT 43239; principal; 2024-09-27 20:30)
DX: T18.9XXA Foreign body of alimentary tract, part unspecified, initial encounter (principal); R45.851 Suicidal ideations; F31.9 Bipolar disorder, unspecified; I10 Essential (primary) hypertension; Z86.718 Personal history of other venous thrombosis and embolism; W44.9XXA Unspecified foreign body entering into or through a natural orifice, initial encounter; D64.9 Anemia, unspecified
CPT/HCPCS: 36415; 74018; 80053; 80307; 80320; 83735; 84100; 85025; 85610; 85730; 96127; 99285; J1200; J2250; J3010; J7030; A9270; G0480